=== PATIENT | female | born 1995 | race Caucasian/White ===

== ENCOUNTER 2017-01-09 21:21 | Emergency (ER) | payer OTHER | END 2017-01-09 21:45 | disposition home or self-care (01) | LOC: ER1 21:21 | DX: H10.9 Unspecified conjunctivitis (principal); F17.210 Nicotine dependence, cigarettes, uncomplicated | CPT/HCPCS: 99283 ==

== ENCOUNTER 2017-04-28 22:45 | Emergency (ER) | payer OTHER | END 2017-04-29 00:02 | disposition left against medical advice (07) | LOC: ER1 22:45 | DX: Z53.21 Procedure and treatment not carried out due to patient leaving prior to being seen by health care provider (principal) | CPT/HCPCS: 81001; 84703 ==